=== PATIENT | male | born 1940 | race Caucasian/White ===

== ENCOUNTER 2021-05-22 07:16 | Observation (INO) | payer OTHER, BC ==
[2021-05-22 08:03] VITALS: BMI 32.3
[2021-05-22 09:03] LABS: HEMATOCRIT 32.2 % (35.4-49); MCH 32.2 pg (25.7-33.7); MCHC 34.1 g/dl (32.0-35.9); MEAN CELL VOLUME 94.3 fl (80-96); PLATELET COUNT 296 10^3/uL (134-434); RBC 3.42 M/mm3 (4.00-5.60); RDW 13.8 % (11.9-15.9)
[2021-05-22 09:07] LABS: WHITE BLOOD COUNT 9.7 K/mm3 (4.0-10.0)
[2021-05-22 09:10] LABS: INR 0.92 (0.83-1.09); PROTHROMBIN TIME (PATIENT) 10.6 SEC (9.7-13.0)
[2021-05-22 09:17] LABS: ALBUMIN 3.4 g/dl (3.4-5.0); CALCIUM 9.6 mg/dL (8.5-10.1); MAGNESIUM 2.7 mg/dL (1.8-2.4)
[2021-05-22 09:20] LABS: CREATININE 1.3 mg/dL (0.55-1.3)
[2021-05-22 09:22] LABS: BILIRUBIN,TOTAL 0.6 mg/dL (0.2-1); TOT PROT 7.6 g/dl (6.4-8.2)
[2021-05-22 09:25] LABS: ACTIVATED PTT 16.6 SECONDS (25.2-36.5)
[2021-05-22 10:19] LABS: ANISOCYTOSIS 0; MACROCYTOSIS 0
[2021-05-22 11:29] LABS: CALCIUM 9.8 mg/dL (8.5-10.1)
[2021-05-22 11:30] LABS: MAGNESIUM 2.6 mg/dL (1.8-2.4)
[2021-05-22 11:33] LABS: CREATININE 1.3 mg/dL (0.55-1.3)
[2021-05-22] MEDS ORDERED: ACETAMINOPHEN 325 MG TABLET (FP) PO PRN (11:55)
[2021-05-22] MEDS ORDERED: MELATONIN 5 MG TABLETS PO PRN (12:04)
[2021-05-22] MEDS ORDERED: FUROSEMIDE 40 MG/4 ML INJECTABLE VIAL IVPUSH ONE (12:14)
[2021-05-22] MEDS ORDERED: PANTOPRAZOLE 40 MG TABLET ONE (12:27)
[2021-05-22] MEDS: PANTOPRAZOLE 40 MG TABLET PO SCH (13:05)
[2021-05-22] MEDS: DIVALPROEX SODIUM 125 MG TABLET E.C. PO SCH ×2 (13:05→22:49)
[2021-05-22] MEDS ORDERED: INSULIN SLIDING SCALE (NOVOLOG) 1 VIAL SQ SCH (16:30)
[2021-05-22] MEDS ORDERED: OLANZapine 5 MG TABLET PO SCH (22:00)
[2021-05-22] MEDS ORDERED: traZODone HCL 50 MG TABLET (FP) PO SCH (22:00)
[2021-05-22] MEDS: OLANZapine 5 MG TABLET PO SCH (22:46)
[2021-05-22] MEDS: ATORVASTATIN CA 20 MG TABLET (FP) PO SCH (22:48)
[2021-05-23] MEDS: LEVOTHYROXINE NA 88 MCG TABLET (FP) PO SCH (06:34)
[2021-05-23 07:40] LABS: BASO % 1.1 % (0-2.0); HEMATOCRIT 28.6 % (35.4-49); HEMOGLOBIN 9.4 GM/dL (11.7-16.9); LYMPH % 21.6 % (8-40); MCH 31.4 pg (25.7-33.7); MCHC 32.8 g/dl (32.0-35.9); MEAN CELL VOLUME 95.8 fl (80-96); MEAN PLT VOLUME 7.2 fl (7.5-11.1); MONO % 10.5 % (3.8-10.2); NEUT % 60.8 % (42.8-82.8); PLATELET COUNT 245 10^3/uL (134-434); RBC 2.99 M/mm3 (4.00-5.60); RDW 13.8 % (11.9-15.9); WHITE BLOOD COUNT 5.7 K/mm3 (4.0-10.0)
[2021-05-23 07:46] LABS: BLOOD UREA NITROGEN 31.2 mg/dL (7-18); CALCIUM 8.4 mg/dL (8.5-10.1); MAGNESIUM 2.6 mg/dL (1.8-2.4)
[2021-05-23] MEDS ORDERED: FUROSEMIDE 40 MG/4 ML INJECTABLE VIAL IVPUSH ONE (07:47)
[2021-05-23 07:50] LABS: CREATININE 1.4 mg/dL (0.55-1.3)
[2021-05-23] MEDS: DIVALPROEX SODIUM 125 MG TABLET E.C. PO SCH ×2 (09:46→21:45)
[2021-05-23] MEDS: PANTOPRAZOLE 40 MG TABLET PO SCH (09:46)
[2021-05-23] MEDS: MEMANTINE HCL 10 MG TABLET (FP) PO SCH (09:46)
[2021-05-23] MEDS ORDERED: ASPIRIN COATED 81 MG TABLET.EC PO SCH (10:00)
[2021-05-23] MEDS ORDERED: ESCITALOPRAM OXALATE 10 MG TABLET PO SCH ×2 (10:00)
[2021-05-23] MEDS: ATORVASTATIN CA 20 MG TABLET (FP) PO SCH (21:45)
[2021-05-23] MEDS: OLANZapine 5 MG TABLET PO SCH (21:45)
[2021-05-24] MEDS: LEVOTHYROXINE NA 88 MCG TABLET (FP) PO SCH (06:27)
[2021-05-24 07:40] LABS: EOS % 5.9 % (0-4.5); HEMATOCRIT 30.4 % (35.4-49); HEMOGLOBIN 10.3 GM/dL (11.7-16.9); LYMPH % 23.7 % (8-40); MCH 32.2 pg (25.7-33.7); MCHC 33.8 g/dl (32.0-35.9); MEAN CELL VOLUME 95.1 fl (80-96); MONO % 10.2 % (3.8-10.2); NEUT % 59.2 % (42.8-82.8); PLATELET COUNT 243 10^3/uL (134-434); RBC 3.19 M/mm3 (4.00-5.60); RDW 13.6 % (11.9-15.9); WHITE BLOOD COUNT 6.4 K/mm3 (4.0-10.0)
[2021-05-24] MEDS ORDERED: FUROSEMIDE 40 MG/4 ML INJECTABLE VIAL IVPUSH ONE (07:59)
[2021-05-24 08:02] LABS: CALCIUM 8.4 mg/dL (8.5-10.1)
[2021-05-24 08:03] LABS: BLOOD UREA NITROGEN 34.2 mg/dL (7-18)
[2021-05-24 08:05] LABS: CREATININE 1.4 mg/dL (0.55-1.3)
[2021-05-24] MEDS: DIVALPROEX SODIUM 125 MG TABLET E.C. PO SCH (09:04)
[2021-05-24] MEDS: OLANZapine 5 MG TABLET PO SCH (09:05)
[2021-05-24] MEDS ORDERED: ASPIRIN COATED 81 MG TABLET.EC PO SCH (10:15)
[2021-05-24] MEDS: MEMANTINE HCL 10 MG TABLET (FP) PO SCH (11:31)
[2021-05-24] MEDS: PANTOPRAZOLE 40 MG TABLET PO SCH (11:40)
[2021-05-24 15:08] VITALS: BP 137/66; PULSE 79; TEMP 97.8
== END 2021-05-24 16:11 | disposition short-term general hospital (02) ==
LOC: JER 07:16 → JERBED 10:41 → J4W 21:49
PROVIDERS: ADMIT Internal Medicine; ATTEND Internal Medicine
PROC: 3E0337Z Introduction of Electrolytic and Water Balance Substance into Peripheral Vein, Percutaneous Approach (ICD-10-PCS; principal; 2021-05-22)
PROC: 3E033GC Introduction of Other Therapeutic Substance into Peripheral Vein, Percutaneous Approach (ICD-10-PCS; 2021-05-22)
DX: I11.0 Hypertensive heart disease with heart failure (principal); E78.5 Hyperlipidemia, unspecified; Z95.1 Presence of aortocoronary bypass graft; E03.9 Hypothyroidism, unspecified; F32.9 Major depressive disorder, single episode, unspecified; F03.90 Unspecified dementia, unspecified severity, without behavioral disturbance, psychotic disturbance, mood disturbance, and anxiety; F22 Delusional disorders; G40.909 Epilepsy, unspecified, not intractable, without status epilepticus; Z95.0 Presence of cardiac pacemaker; M19.90 Unspecified osteoarthritis, unspecified site; M62.81 Muscle weakness (generalized); R79.89 Other specified abnormal findings of blood chemistry; R26.81 Unsteadiness on feet
CPT/HCPCS: 36415; 70450-TC; 71045-TC-FY; 72125-TC; 80048; 80053; 82550; 82607; 82728; 82962; 83036; 83540; 83550; 83735; 84443; 84484; 85025; 85610; 85730; 93005; 93010; 93306-TC; 96374; 96376; 97116-GP; 97161-GP; 99285-25; C9803; G0378; U0003; U0005

== ENCOUNTER 2021-05-31 01:35 | Emergency (ER) | payer OTHER, BC ==
[2021-05-31 02:13] VITALS: BMI 32.5
[2021-05-31] MEDS ORDERED: ACETAMINOPHEN 325 MG TABLET (FP) PO ONE (02:20)
[2021-05-31] MEDS ORDERED: ACETAMINOPHEN 325 MG TABLET (FP) ONE (02:27)
[2021-05-31 07:46] VITALS: BP 147/83; PULSE 62; TEMP 97.7
== END 2021-05-31 07:45 ==
LOC: JER 01:35
DX: S00.81XA Abrasion of other part of head, initial encounter (principal); W19.XXXA Unspecified fall, initial encounter
CPT/HCPCS: 70450-TC; 70486-TC; 72125-TC; 99284-25

== ENCOUNTER 2022-01-23 06:41 | Inpatient (IN) | payer OTHER, BC ==
[2022-01-23] MEDS ORDERED: ALBUTEROL SO4 2.5/IPRATROPIUM 0.5 INH SOL 3 ML VIAL.NEB. NEB ONE ×2 (07:19→07:27)
[2022-01-23 07:53] LABS: BASO % 0.4 % (0-2.0); EOS % 0.6 % (0-4.5); HEMATOCRIT 31.9 % (35.4-49); HEMOGLOBIN 10.6 GM/dL (11.7-16.9); LYMPH % 11.2 % (8-40); MCH 30.7 pg (25.7-33.7); MCHC 33.2 g/dl (32.0-35.9); MEAN CELL VOLUME 92.3 fl (80-96); MEAN PLT VOLUME 7.8 fl (7.5-11.1); MONO % 11.3 % (3.8-10.2); NEUT % 76.5 % (42.8-82.8); PLATELET COUNT 179 10^3/uL (134-434); RBC 3.46 M/mm3 (4.00-5.60); RDW 14.7 % (11.9-15.9); WHITE BLOOD COUNT 10.5 K/mm3 (4.0-10.0)
[2022-01-23] MEDS ORDERED: ACETAMINOPHEN 1000 MG/100 ML BAG IVPB ONE (08:02)
[2022-01-23 08:04] LABS: INR 1.17 (0.83-1.09); PROTHROMBIN TIME (PATIENT) 13.5 SEC (9.7-13.0)
[2022-01-23 08:06] LABS: ACTIVATED PTT 27.7 SECONDS (25.2-36.5)
[2022-01-23 08:10] LABS: VENOUS BASE EXCESS 3.1 mmol/L (-2-2); VENOUS O2 SATURATION 92.3 % (70-80); VENOUS PCO2 42.6 mmHg (38-52); VENOUS PH 7.432 (7.310-7.410)
[2022-01-23 08:12] LABS: ALBUMIN 2.7 g/dl (3.4-5.0); BLOOD UREA NITROGEN 57.5 mg/dL (7-18)
[2022-01-23 08:15] LABS: CREATININE 2.6 mg/dL (0.55-1.3)
[2022-01-23 08:17] LABS: BILIRUBIN,TOTAL 0.7 mg/dL (0.2-1); TOT PROT 6.5 g/dl (6.4-8.2)
[2022-01-23 08:20] LABS: N-TERMINAL BNP 1414.1 pg/ml (5-450)
[2022-01-23] MEDS ORDERED: FUROSEMIDE 40 MG/4 ML INJECTABLE VIAL IVPUSH ONE (08:57)
[2022-01-23] MEDS ORDERED: PIPERACILLIN/TAZOB 4.5 GM 4.5 GM in DEXTROSE 5%-WATER 100 ML IVPB ONE (08:58)
[2022-01-23] MEDS ORDERED: PIPERACILLIN/TAZOB 4.5 GM 4.5 GM/100 ML BAG IVPB ONE (10:17)
[2022-01-23] MEDS ORDERED: FUROSEMIDE 40 MG/4 ML INJECTABLE VIAL ONE ×2 (10:18→13:19)
[2022-01-23] MEDS ORDERED: ATORVASTATIN CA 80 MG TABLET (FP) PO ONE (10:30)
[2022-01-23] MEDS: INSULIN SLIDING SCALE (NOVOLOG) 1 VIAL SQ SCH ×2 (10:53→17:54)
[2022-01-23] MEDS ORDERED: ATORVASTATIN CA 80 MG TABLET (FP) ONE (10:54)
[2022-01-23] MEDS ORDERED: ASPIRIN 81 MG CHEWABLE TABLETS ONE (10:54)
[2022-01-23] MEDS: ASPIRIN 81 MG CHEWABLE TABLETS PO SCH ×2 (10:55→10:59)
[2022-01-23] MEDS ORDERED: VANCOMYCIN/WATER FOR INJ (PEG) 1,000 MG/200 ML BAG IVPB ONE (10:55)
[2022-01-23] MEDS ORDERED: VANCOMYCIN 1 GM/200 ML PREMIX BAG IVPB ONE (11:00)
[2022-01-23] MEDS ORDERED: ENOXAPARIN NA (PORCINE) 120 MG/0.8 ML DISP.SYRIN SQ SCH (11:30)
[2022-01-23] MEDS ORDERED: ENOXAPARIN NA (PORCINE) 30 MG/0.3 ML DISP.SYRIN SQ ONE (11:41)
[2022-01-23] MEDS ORDERED: ENOXAPARIN NA (PORCINE) 100 MG/1 ML DISP.SYRIN SQ ONE (11:41)
[2022-01-23] MEDS ORDERED: ENOXAPARIN 100 MG, ENOXAPARIN 30 MG SQ ONE (11:45)
[2022-01-23 12:42] LABS: EPI CELLS 11 /uL (0-25.1); HYALINE CASTS 6 /uL (0-3.1); URINE APPEARANCE TURBID; URINE BACTERIA >9,000 /uL (0-1359); URINE BILIRUBIN NEGATIVE (NEGATIVE); URINE COLOR YELLOW; URINE GLUCOSE (UA) NEGATIVE (NEGATIVE); URINE KETONE NEGATIVE (NEGATIVE); URINE LEUK ESTERASE 3+ (NEGATIVE); URINE NITRITE NEGATIVE (NEGATIVE); URINE PROTEIN 1+ (NEGATIVE); URINE RBC 49 /uL (0-23.9); URINE UROBILINOGEN 0.2 mg/dL (0.2-1.0); URINE WBC 5880 /uL (0-25.8)
[2022-01-23] MEDS: FUROSEMIDE 40 MG/4 ML INJECTABLE VIAL IVPUSH SCH (13:21)
[2022-01-23] MEDS ORDERED: HEPARIN NA (PORCINE) 5,000 UNITS/ML 1ML VIAL SQ SCH (14:00)
[2022-01-23] MEDS ORDERED: PIPERACILLIN/TAZOB 3.375 GM 3.375 GM in DEXTROSE 5%-WATER - 50 ML IVPB SCH ×2 (15:00→18:00)
[2022-01-23] MEDS ORDERED: ASPIRIN 325 MG TABLET PO ONE (16:32)
[2022-01-23] MEDS: DIVALPROEX SODIUM 125 MG TABLET E.C. PO SCH (22:48)
[2022-01-24] MEDS: FUROSEMIDE 40 MG/4 ML INJECTABLE VIAL IVPUSH SCH ×2 (06:24→14:10)
[2022-01-24] MEDS: INSULIN SLIDING SCALE (NOVOLOG) 1 VIAL SQ SCH ×3 (06:37→17:21)
[2022-01-24] MEDS: LEVOTHYROXINE NA 88 MCG TABLET (FP) PO SCH (06:38)
[2022-01-24 08:08] LABS: BASO % 0.2 % (0-2.0); EOS % 0.5 % (0-4.5); HEMATOCRIT 29.4 % (35.4-49); HEMOGLOBIN 10.1 GM/dL (11.7-16.9); LYMPH % 7.5 % (8-40); MCH 31.7 pg (25.7-33.7); MCHC 34.4 g/dl (32.0-35.9); MEAN CELL VOLUME 92.1 fl (80-96); MEAN PLT VOLUME 8.3 fl (7.5-11.1); MONO % 9.2 % (3.8-10.2); NEUT % 82.6 % (42.8-82.8); PLATELET COUNT 157 10^3/uL (134-434); RBC 3.19 M/mm3 (4.00-5.60); RDW 14.2 % (11.9-15.9); WHITE BLOOD COUNT 8.8 K/mm3 (4.0-10.0)
[2022-01-24 08:31] LABS: BLOOD UREA NITROGEN 53.1 mg/dL (7-18)
[2022-01-24 08:32] LABS: ALBUMIN 2.4 g/dl (3.4-5.0)
[2022-01-24 08:34] LABS: CREATININE 2.3 mg/dL (0.55-1.3); PHOSPHOROUS 3.4 mg/dL (2.5-4.9); TOT PROT 6.2 g/dl (6.4-8.2)
[2022-01-24 08:38] LABS: BILIRUBIN,TOTAL 0.9 mg/dL (0.2-1)
[2022-01-24] MEDS: MEMANTINE HCL 10 MG TABLET (FP) PO SCH (11:19)
[2022-01-24] MEDS: HEPARIN NA (PORCINE) 5,000 UNITS/ML 1ML VIAL SQ SCH ×3 (11:20→21:56)
[2022-01-24] MEDS: ESCITALOPRAM OXALATE 20 MG TABLET PO SCH (11:21)
[2022-01-24] MEDS: ASPIRIN 81 MG CHEWABLE TABLETS PO SCH (11:21)
[2022-01-24] MEDS: OLANZapine 5 MG TABLET PO SCH (11:21)
[2022-01-24] MEDS: CEFTRIAXONE 1 GM in DEXTROSE 5%-WATER - 50 ML IVPB SCH (11:21)
[2022-01-24] MEDS: DIVALPROEX SODIUM 125 MG TABLET E.C. PO SCH ×2 (11:22→21:58)
[2022-01-24] MEDS: OXYBUTYNIN CHLORIDE 5 MG TABLET PO SCH (11:22)
[2022-01-24] MEDS ORDERED: ACETAMINOPHEN 325 MG TABLET (FP) PO PRN (17:44)
[2022-01-24] MEDS ORDERED: ATORVASTATIN CA 20 MG TABLET (FP) PO SCH (22:00)
[2022-01-25] MEDS: INSULIN SLIDING SCALE (NOVOLOG) 1 VIAL SQ SCH ×3 (06:34→18:33)
[2022-01-25] MEDS: FUROSEMIDE 40 MG/4 ML INJECTABLE VIAL IVPUSH SCH ×2 (06:34→14:30)
[2022-01-25] MEDS: HEPARIN NA (PORCINE) 5,000 UNITS/ML 1ML VIAL SQ SCH ×3 (06:34→21:40)
[2022-01-25] MEDS: LEVOTHYROXINE NA 88 MCG TABLET (FP) PO SCH (06:34)
[2022-01-25] MEDS ORDERED: ATORVASTATIN CA 20 MG TABLET (FP) PO SCH (08:00)
[2022-01-25] MEDS: ASPIRIN 81 MG CHEWABLE TABLETS PO SCH (10:33)
[2022-01-25] MEDS: CEFTRIAXONE 1 GM in DEXTROSE 5%-WATER - 50 ML IVPB SCH (10:33)
[2022-01-25] MEDS: METOPROLOL TARTRATE 25 MG TABLET (FP) PO SCH ×2 (10:33→21:40)
[2022-01-25] MEDS: ESCITALOPRAM OXALATE 20 MG TABLET PO SCH (10:33)
[2022-01-25] MEDS: MEMANTINE HCL 10 MG TABLET (FP) PO SCH (10:33)
[2022-01-25] MEDS: OLANZapine 5 MG TABLET PO SCH (10:33)
[2022-01-25] MEDS: OXYBUTYNIN CHLORIDE 5 MG TABLET PO SCH (10:55)
[2022-01-25] MEDS: DIVALPROEX SODIUM 125 MG TABLET E.C. PO SCH ×2 (10:56→21:40)
[2022-01-25 13:16] LABS: BLOOD UREA NITROGEN 41.7 mg/dL (7-18); CALCIUM 8.3 mg/dL (8.5-10.1)
[2022-01-25 13:19] LABS: CREATININE 1.7 mg/dL (0.55-1.3)
[2022-01-25] MEDS: ATORVASTATIN CA 80 MG TABLET (FP) PO SCH (21:40)
[2022-01-26] MEDS: INSULIN SLIDING SCALE (NOVOLOG) 1 VIAL SQ SCH ×3 (06:50→17:42)
[2022-01-26] MEDS: HEPARIN NA (PORCINE) 5,000 UNITS/ML 1ML VIAL SQ SCH ×3 (06:50→21:39)
[2022-01-26] MEDS: LEVOTHYROXINE NA 88 MCG TABLET (FP) PO SCH (06:50)
[2022-01-26] MEDS: FUROSEMIDE 40 MG/4 ML INJECTABLE VIAL IVPUSH SCH ×2 (06:50→14:39)
[2022-01-26 07:52] LABS: BASO % 0.4 % (0-2.0); EOS % 1.2 % (0-4.5); HEMATOCRIT 30.3 % (35.4-49); HEMOGLOBIN 9.9 GM/dL (11.7-16.9); LYMPH % 10.8 % (8-40); MCH 29.9 pg (25.7-33.7); MCHC 32.5 g/dl (32.0-35.9); MEAN CELL VOLUME 92.1 fl (80-96); MEAN PLT VOLUME 8.4 fl (7.5-11.1); MONO % 10.3 % (3.8-10.2); NEUT % 77.3 % (42.8-82.8); PLATELET COUNT 219 10^3/uL (134-434); RBC 3.29 M/mm3 (4.00-5.60); RDW 14.3 % (11.9-15.9); WHITE BLOOD COUNT 9.3 K/mm3 (4.0-10.0)
[2022-01-26 08:16] LABS: CALCIUM 8.5 mg/dL (8.5-10.1)
[2022-01-26 08:17] LABS: BLOOD UREA NITROGEN 46.3 mg/dL (7-18)
[2022-01-26 08:19] LABS: CREATININE 1.6 mg/dL (0.55-1.3)
[2022-01-26] MEDS: ESCITALOPRAM OXALATE 20 MG TABLET PO SCH (09:50)
[2022-01-26] MEDS: MEMANTINE HCL 10 MG TABLET (FP) PO SCH (09:50)
[2022-01-26] MEDS: METOPROLOL TARTRATE 25 MG TABLET (FP) PO SCH ×2 (09:50→21:39)
[2022-01-26] MEDS: OLANZapine 5 MG TABLET PO SCH (09:50)
[2022-01-26] MEDS: DIVALPROEX SODIUM 125 MG TABLET E.C. PO SCH ×2 (09:51→21:39)
[2022-01-26] MEDS: OXYBUTYNIN CHLORIDE 5 MG TABLET PO SCH (09:51)
[2022-01-26] MEDS: traZODone HCL 50 MG TABLET (FP) PO SCH (09:56)
[2022-01-26] MEDS: ASPIRIN COATED 81 MG TABLET.EC PO SCH (09:56)
[2022-01-26] MEDS: CEFTRIAXONE 1 GM in DEXTROSE 5%-WATER - 50 ML IVPB SCH (15:10)
[2022-01-26] MEDS: ATORVASTATIN CA 80 MG TABLET (FP) PO SCH (21:38)
[2022-01-27] MEDS: FUROSEMIDE 40 MG/4 ML INJECTABLE VIAL IVPUSH SCH ×2 (06:54→13:56)
[2022-01-27] MEDS: HEPARIN NA (PORCINE) 5,000 UNITS/ML 1ML VIAL SQ SCH ×3 (06:54→22:27)
[2022-01-27] MEDS: INSULIN SLIDING SCALE (NOVOLOG) 1 VIAL SQ SCH ×3 (06:54→17:31)
[2022-01-27] MEDS: LEVOTHYROXINE NA 88 MCG TABLET (FP) PO SCH (06:55)
[2022-01-27 08:27] LABS: BASO % 0.7 % (0-2.0); EOS % 2.7 % (0-4.5); HEMATOCRIT 29.8 % (35.4-49); LYMPH % 14.9 % (8-40); MCH 30.9 pg (25.7-33.7); MCHC 33.5 g/dl (32.0-35.9); MEAN CELL VOLUME 92.3 fl (80-96); MEAN PLT VOLUME 8.1 fl (7.5-11.1); MONO % 11.9 % (3.8-10.2); NEUT % 69.8 % (42.8-82.8); PLATELET COUNT 231 10^3/uL (134-434); RBC 3.23 M/mm3 (4.00-5.60); RDW 14.8 % (11.9-15.9); WHITE BLOOD COUNT 8.6 K/mm3 (4.0-10.0)
[2022-01-27 08:53] LABS: CALCIUM 8.6 mg/dL (8.5-10.1)
[2022-01-27 08:54] LABS: ALBUMIN 2.2 g/dl (3.4-5.0); BLOOD UREA NITROGEN 57.4 mg/dL (7-18); MAGNESIUM 2.4 mg/dL (1.8-2.4)
[2022-01-27 08:57] LABS: CREATININE 1.9 mg/dL (0.55-1.3)
[2022-01-27 08:58] LABS: BILIRUBIN,TOTAL 0.6 mg/dL (0.2-1); TOT PROT 6.4 g/dl (6.4-8.2)
[2022-01-27] MEDS: CEFTRIAXONE 1 GM in DEXTROSE 5%-WATER - 50 ML IVPB SCH (09:56)
[2022-01-27] MEDS: OLANZapine 5 MG TABLET PO SCH (09:57)
[2022-01-27] MEDS: MEMANTINE HCL 10 MG TABLET (FP) PO SCH (09:57)
[2022-01-27] MEDS: ESCITALOPRAM OXALATE 20 MG TABLET PO SCH (09:57)
[2022-01-27] MEDS: traZODone HCL 50 MG TABLET (FP) PO SCH (09:57)
[2022-01-27] MEDS: ASPIRIN COATED 81 MG TABLET.EC PO SCH (09:57)
[2022-01-27] MEDS: DIVALPROEX SODIUM 125 MG TABLET E.C. PO SCH ×2 (09:59→22:27)
[2022-01-27] MEDS: OXYBUTYNIN CHLORIDE 5 MG TABLET PO SCH (09:59)
[2022-01-27] MEDS: METOPROLOL TARTRATE 25 MG TABLET (FP) PO SCH ×2 (10:07→22:28)
[2022-01-27] MEDS ORDERED: ONDANSETRON 4 MG/2 ML VIAL IVPUSH PRN (14:54)
[2022-01-27] MEDS ORDERED: PROPOFOL 20 ML ONE (15:38)
[2022-01-27] MEDS ORDERED: ceFAZolin SODIUM 1 GM VIAL IVPB ONE (15:59)
[2022-01-27] MEDS ORDERED: ceFAZolin SODIUM 1 GM VIAL ONE (16:12)
[2022-01-27] MEDS ORDERED: ACETAMINOPHEN 325 MG TABLET (FP) PO PRN (16:44)
[2022-01-27] MEDS: ATORVASTATIN CA 80 MG TABLET (FP) PO SCH (22:27)
[2022-01-28] MEDS: INSULIN SLIDING SCALE (NOVOLOG) 1 VIAL SQ SCH ×3 (06:44→17:40)
[2022-01-28] MEDS: FUROSEMIDE 40 MG/4 ML INJECTABLE VIAL IVPUSH SCH ×2 (06:44→14:01)
[2022-01-28] MEDS: LEVOTHYROXINE NA 88 MCG TABLET (FP) PO SCH (06:44)
[2022-01-28] MEDS: HEPARIN NA (PORCINE) 5,000 UNITS/ML 1ML VIAL SQ SCH ×3 (06:44→22:15)
[2022-01-28 08:38] LABS: BASO % 0.5 % (0-2.0); EOS % 3.9 % (0-4.5); HEMATOCRIT 30.7 % (35.4-49); HEMOGLOBIN 9.9 GM/dL (11.7-16.9); LYMPH % 13.3 % (8-40); MCHC 32.4 g/dl (32.0-35.9); MEAN CELL VOLUME 92.6 fl (80-96); MEAN PLT VOLUME 7.7 fl (7.5-11.1); MONO % 10.1 % (3.8-10.2); NEUT % 72.2 % (42.8-82.8); PLATELET COUNT 292 10^3/uL (134-434); RBC 3.31 M/mm3 (4.00-5.60); WHITE BLOOD COUNT 8.2 K/mm3 (4.0-10.0)
[2022-01-28 08:55] LABS: ALBUMIN 2.2 g/dl (3.4-5.0)
[2022-01-28 08:56] LABS: BLOOD UREA NITROGEN 49.9 mg/dL (7-18); CALCIUM 8.7 mg/dL (8.5-10.1); MAGNESIUM 2.4 mg/dL (1.8-2.4)
[2022-01-28 08:58] LABS: CREATININE 1.6 mg/dL (0.55-1.3)
[2022-01-28 09:00] LABS: BILIRUBIN,TOTAL 0.4 mg/dL (0.2-1); TOT PROT 6.4 g/dl (6.4-8.2)
[2022-01-28] MEDS: CEFTRIAXONE 1 GM in DEXTROSE 5%-WATER - 50 ML IVPB SCH (09:40)
[2022-01-28] MEDS: METOPROLOL TARTRATE 25 MG TABLET (FP) PO SCH ×2 (09:41→22:14)
[2022-01-28] MEDS: ESCITALOPRAM OXALATE 20 MG TABLET PO SCH (09:41)
[2022-01-28] MEDS: ASPIRIN COATED 81 MG TABLET.EC PO SCH (09:41)
[2022-01-28] MEDS: OLANZapine 5 MG TABLET PO SCH (09:41)
[2022-01-28] MEDS: traZODone HCL 50 MG TABLET (FP) PO SCH (09:41)
[2022-01-28] MEDS: MEMANTINE HCL 10 MG TABLET (FP) PO SCH (09:41)
[2022-01-28] MEDS: DIVALPROEX SODIUM 125 MG TABLET E.C. PO SCH ×2 (10:21→22:15)
[2022-01-28] MEDS: OXYBUTYNIN CHLORIDE 5 MG TABLET PO SCH (10:21)
[2022-01-28] MEDS: ATORVASTATIN CA 80 MG TABLET (FP) PO SCH (22:15)
[2022-01-29] MEDS: HEPARIN NA (PORCINE) 5,000 UNITS/ML 1ML VIAL SQ SCH ×3 (06:24→22:06)
[2022-01-29] MEDS: FUROSEMIDE 40 MG/4 ML INJECTABLE VIAL IVPUSH SCH (06:25)
[2022-01-29] MEDS: LEVOTHYROXINE NA 88 MCG TABLET (FP) PO SCH (06:25)
[2022-01-29] MEDS: INSULIN SLIDING SCALE (NOVOLOG) 1 VIAL SQ SCH ×3 (06:25→17:54)
[2022-01-29 08:34] LABS: BASO % 1.3 % (0-2.0); EOS % 4.4 % (0-4.5); HEMATOCRIT 31.2 % (35.4-49); HEMOGLOBIN 10.3 GM/dL (11.7-16.9); LYMPH % 23.7 % (8-40); MCH 30.4 pg (25.7-33.7); MEAN CELL VOLUME 92.3 fl (80-96); MEAN PLT VOLUME 7.4 fl (7.5-11.1); MONO % 8.8 % (3.8-10.2); NEUT % 61.8 % (42.8-82.8); PLATELET COUNT 345 10^3/uL (134-434); RBC 3.38 M/mm3 (4.00-5.60); RDW 14.4 % (11.9-15.9); WHITE BLOOD COUNT 7.4 K/mm3 (4.0-10.0)
[2022-01-29 09:03] LABS: ALBUMIN 2.2 g/dl (3.4-5.0); BLOOD UREA NITROGEN 47.1 mg/dL (7-18); CALCIUM 8.9 mg/dL (8.5-10.1); MAGNESIUM 2.6 mg/dL (1.8-2.4)
[2022-01-29 09:04] LABS: BLOOD UREA NITROGEN 49.8 mg/dL (7-18)
[2022-01-29] MEDS: CEFTRIAXONE 1 GM in DEXTROSE 5%-WATER - 50 ML IVPB SCH (09:04)
[2022-01-29] MEDS: ASPIRIN COATED 81 MG TABLET.EC PO SCH (09:04)
[2022-01-29] MEDS: MEMANTINE HCL 10 MG TABLET (FP) PO SCH (09:04)
[2022-01-29] MEDS: traZODone HCL 50 MG TABLET (FP) PO SCH (09:04)
[2022-01-29] MEDS: OLANZapine 5 MG TABLET PO SCH (09:04)
[2022-01-29] MEDS: ESCITALOPRAM OXALATE 20 MG TABLET PO SCH (09:04)
[2022-01-29] MEDS: DIVALPROEX SODIUM 125 MG TABLET E.C. PO SCH ×2 (09:05→22:02)
[2022-01-29] MEDS: METOPROLOL TARTRATE 25 MG TABLET (FP) PO SCH ×2 (09:05→22:03)
[2022-01-29] MEDS: OXYBUTYNIN CHLORIDE 5 MG TABLET PO SCH (09:05)
[2022-01-29 09:06] LABS: CREATININE 1.5 mg/dL (0.55-1.3)
[2022-01-29 09:07] LABS: BILIRUBIN,TOTAL 0.4 mg/dL (0.2-1); CREATININE 1.5 mg/dL (0.55-1.3)
[2022-01-29 09:08] LABS: TOT PROT 6.8 g/dl (6.4-8.2)
[2022-01-29] MEDS ORDERED: MINERAL OIL ENEMA 133 ML ENEMA RC ONE (10:21)
[2022-01-29] MEDS: POLYETHYLENE GLYCOL (HEALTHYLAX) 3350 17 GM PACKET PO SCH ×2 (12:44→22:06)
[2022-01-29] MEDS: DOCUSATE SODIUM 100 MG CAPSULE (FP) PO SCH ×2 (15:45→22:07)
[2022-01-29] MEDS: FUROSEMIDE 40 MG TABLET (FP) PO SCH (15:45)
[2022-01-29] MEDS: ATORVASTATIN CA 80 MG TABLET (FP) PO SCH (22:02)
[2022-01-30] MEDS: HEPARIN NA (PORCINE) 5,000 UNITS/ML 1ML VIAL SQ SCH ×3 (06:07→21:15)
[2022-01-30] MEDS: DOCUSATE SODIUM 100 MG CAPSULE (FP) PO SCH ×3 (06:07→21:15)
[2022-01-30] MEDS: FUROSEMIDE 40 MG TABLET (FP) PO SCH ×2 (06:07→13:37)
[2022-01-30] MEDS: LEVOTHYROXINE NA 88 MCG TABLET (FP) PO SCH (06:08)
[2022-01-30] MEDS: INSULIN SLIDING SCALE (NOVOLOG) 1 VIAL SQ SCH ×3 (06:08→17:33)
[2022-01-30 08:06] LABS: BASO % 0.8 % (0-2.0); EOS % 3.2 % (0-4.5); HEMATOCRIT 30.8 % (35.4-49); HEMOGLOBIN 9.9 GM/dL (11.7-16.9); MCH 29.9 pg (25.7-33.7); MCHC 32.2 g/dl (32.0-35.9); MEAN CELL VOLUME 92.9 fl (80-96); MEAN PLT VOLUME 7.5 fl (7.5-11.1); MONO % 7.3 % (3.8-10.2); NEUT % 68.7 % (42.8-82.8); PLATELET COUNT 365 10^3/uL (134-434); RBC 3.32 M/mm3 (4.00-5.60); RDW 14.9 % (11.9-15.9); WHITE BLOOD COUNT 8.6 K/mm3 (4.0-10.0)
[2022-01-30 08:36] LABS: CALCIUM 8.9 mg/dL (8.5-10.1)
[2022-01-30 08:37] LABS: BLOOD UREA NITROGEN 50.4 mg/dL (7-18); MAGNESIUM 2.2 mg/dL (1.8-2.4)
[2022-01-30 08:40] LABS: CREATININE 1.5 mg/dL (0.55-1.3)
[2022-01-30] MEDS: MEMANTINE HCL 10 MG TABLET (FP) PO SCH (09:49)
[2022-01-30] MEDS: ESCITALOPRAM OXALATE 20 MG TABLET PO SCH (09:49)
[2022-01-30] MEDS: CEFTRIAXONE 1 GM in DEXTROSE 5%-WATER - 50 ML IVPB SCH (09:50)
[2022-01-30] MEDS: traZODone HCL 50 MG TABLET (FP) PO SCH (09:50)
[2022-01-30] MEDS: METOPROLOL TARTRATE 25 MG TABLET (FP) PO SCH ×2 (09:50→21:15)
[2022-01-30] MEDS: POLYETHYLENE GLYCOL (HEALTHYLAX) 3350 17 GM PACKET PO SCH ×2 (09:50→21:14)
[2022-01-30] MEDS: ASPIRIN COATED 81 MG TABLET.EC PO SCH (09:50)
[2022-01-30] MEDS: OLANZapine 5 MG TABLET PO SCH (09:50)
[2022-01-30] MEDS: OXYBUTYNIN CHLORIDE 5 MG TABLET PO SCH (09:51)
[2022-01-30] MEDS: DIVALPROEX SODIUM 125 MG TABLET E.C. PO SCH ×2 (09:51→21:24)
[2022-01-30] MEDS: ATORVASTATIN CA 80 MG TABLET (FP) PO SCH (21:23)
[2022-01-31] MEDS: HEPARIN NA (PORCINE) 5,000 UNITS/ML 1ML VIAL SQ SCH ×3 (06:16→22:02)
[2022-01-31] MEDS: DOCUSATE SODIUM 100 MG CAPSULE (FP) PO SCH ×3 (06:16→21:51)
[2022-01-31] MEDS: LEVOTHYROXINE NA 88 MCG TABLET (FP) PO SCH (06:16)
[2022-01-31] MEDS: FUROSEMIDE 40 MG TABLET (FP) PO SCH ×2 (06:16→14:36)
[2022-01-31] MEDS: INSULIN SLIDING SCALE (NOVOLOG) 1 VIAL SQ SCH ×3 (06:17→18:18)
[2022-01-31 08:28] LABS: BASO % 0.5 % (0-2.0); EOS % 3.6 % (0-4.5); HEMATOCRIT 28.5 % (35.4-49); HEMOGLOBIN 9.6 GM/dL (11.7-16.9); LYMPH % 23.6 % (8-40); MCH 31.3 pg (25.7-33.7); MCHC 33.8 g/dl (32.0-35.9); MEAN CELL VOLUME 92.6 fl (80-96); MEAN PLT VOLUME 7.3 fl (7.5-11.1); MONO % 5.9 % (3.8-10.2); NEUT % 66.4 % (42.8-82.8); PLATELET COUNT 352 10^3/uL (134-434); RBC 3.08 M/mm3 (4.00-5.60); RDW 14.3 % (11.9-15.9); WHITE BLOOD COUNT 8.9 K/mm3 (4.0-10.0)
[2022-01-31 08:38] LABS: CALCIUM 8.9 mg/dL (8.5-10.1)
[2022-01-31 08:40] LABS: BLOOD UREA NITROGEN 44.6 mg/dL (7-18)
[2022-01-31 08:44] LABS: CREATININE 1.5 mg/dL (0.55-1.3)
[2022-01-31] MEDS: MEMANTINE HCL 10 MG TABLET (FP) PO SCH (09:55)
[2022-01-31] MEDS: OLANZapine 5 MG TABLET PO SCH (09:55)
[2022-01-31] MEDS: ESCITALOPRAM OXALATE 20 MG TABLET PO SCH (09:55)
[2022-01-31] MEDS: traZODone HCL 50 MG TABLET (FP) PO SCH (09:55)
[2022-01-31] MEDS: ASPIRIN COATED 81 MG TABLET.EC PO SCH (09:55)
[2022-01-31] MEDS: POLYETHYLENE GLYCOL (HEALTHYLAX) 3350 17 GM PACKET PO SCH ×2 (09:55→21:55)
[2022-01-31] MEDS: OXYBUTYNIN CHLORIDE 5 MG TABLET PO SCH (09:57)
[2022-01-31] MEDS: DIVALPROEX SODIUM 125 MG TABLET E.C. PO SCH ×2 (09:57→21:52)
[2022-01-31] MEDS: METOPROLOL TARTRATE 25 MG TABLET (FP) PO SCH ×2 (11:30→22:07)
[2022-01-31] MEDS: ATORVASTATIN CA 80 MG TABLET (FP) PO SCH (22:42)
[2022-02-01] MEDS: HEPARIN NA (PORCINE) 5,000 UNITS/ML 1ML VIAL SQ SCH ×3 (06:36→21:54)
[2022-02-01] MEDS: FUROSEMIDE 40 MG TABLET (FP) PO SCH ×2 (06:36→14:49)
[2022-02-01] MEDS: DOCUSATE SODIUM 100 MG CAPSULE (FP) PO SCH ×3 (06:36→21:55)
[2022-02-01] MEDS: LEVOTHYROXINE NA 88 MCG TABLET (FP) PO SCH (06:36)
[2022-02-01] MEDS: INSULIN SLIDING SCALE (NOVOLOG) 1 VIAL SQ SCH ×3 (07:55→17:49)
[2022-02-01 08:00] LABS: HEMATOCRIT 30.6 % (35.4-49); HEMOGLOBIN 9.9 GM/dL (11.7-16.9); MCH 29.9 pg (25.7-33.7); MCHC 32.2 g/dl (32.0-35.9); MEAN CELL VOLUME 92.9 fl (80-96); MEAN PLT VOLUME 7.5 fl (7.5-11.1); PLATELET COUNT 374 10^3/uL (134-434); RDW 14.3 % (11.9-15.9); WHITE BLOOD COUNT 8.7 K/mm3 (4.0-10.0)
[2022-02-01 08:23] LABS: BLOOD UREA NITROGEN 38.4 mg/dL (7-18); CALCIUM 8.5 mg/dL (8.5-10.1)
[2022-02-01 08:27] LABS: CREATININE 1.3 mg/dL (0.55-1.3)
[2022-02-01 09:19] LABS: ANISOCYTOSIS 2+; MACROCYTOSIS 0
[2022-02-01] MEDS: METOPROLOL TARTRATE 25 MG TABLET (FP) PO SCH ×2 (10:25→21:52)
[2022-02-01] MEDS: ESCITALOPRAM OXALATE 20 MG TABLET PO SCH (10:27)
[2022-02-01] MEDS: ASPIRIN COATED 81 MG TABLET.EC PO SCH (10:27)
[2022-02-01] MEDS: MEMANTINE HCL 10 MG TABLET (FP) PO SCH (10:27)
[2022-02-01] MEDS: OLANZapine 5 MG TABLET PO SCH (10:27)
[2022-02-01] MEDS: traZODone HCL 50 MG TABLET (FP) PO SCH (10:28)
[2022-02-01] MEDS: OXYBUTYNIN CHLORIDE 5 MG TABLET PO SCH (10:28)
[2022-02-01] MEDS: POLYETHYLENE GLYCOL (HEALTHYLAX) 3350 17 GM PACKET PO SCH (10:29)
[2022-02-01] MEDS: DIVALPROEX SODIUM 125 MG TABLET E.C. PO SCH ×2 (10:29→22:00)
[2022-02-01] MEDS: ATORVASTATIN CA 80 MG TABLET (FP) PO SCH (21:52)
[2022-02-02] MEDS: HEPARIN NA (PORCINE) 5,000 UNITS/ML 1ML VIAL SQ SCH ×3 (06:36→21:53)
[2022-02-02] MEDS: LEVOTHYROXINE NA 88 MCG TABLET (FP) PO SCH (06:38)
[2022-02-02] MEDS: DOCUSATE SODIUM 100 MG CAPSULE (FP) PO SCH ×3 (06:38→21:53)
[2022-02-02] MEDS: FUROSEMIDE 40 MG TABLET (FP) PO SCH ×2 (06:38→14:30)
[2022-02-02] MEDS: POLYETHYLENE GLYCOL (HEALTHYLAX) 3350 17 GM PACKET PO SCH ×3 (06:39→21:52)
[2022-02-02 08:04] LABS: HEMATOCRIT 30.5 % (35.4-49); MCH 30.3 pg (25.7-33.7); MCHC 32.9 g/dl (32.0-35.9); MEAN PLT VOLUME 7.3 fl (7.5-11.1); PLATELET COUNT 388 10^3/uL (134-434); RBC 3.32 M/mm3 (4.00-5.60); RDW 14.5 % (11.9-15.9); WHITE BLOOD COUNT 9.8 K/mm3 (4.0-10.0)
[2022-02-02] MEDS: INSULIN SLIDING SCALE (NOVOLOG) 1 VIAL SQ SCH ×3 (08:04→17:10)
[2022-02-02 08:45] LABS: CALCIUM 8.5 mg/dL (8.5-10.1)
[2022-02-02 08:46] LABS: BLOOD UREA NITROGEN 31.6 mg/dL (7-18)
[2022-02-02 08:49] LABS: CREATININE 1.2 mg/dL (0.55-1.3)
[2022-02-02 09:06] LABS: ANISOCYTOSIS 2+; MACROCYTOSIS 0
[2022-02-02] MEDS: OXYBUTYNIN CHLORIDE 5 MG TABLET PO SCH (09:22)
[2022-02-02] MEDS: traZODone HCL 50 MG TABLET (FP) PO SCH (09:23)
[2022-02-02] MEDS: DIVALPROEX SODIUM 125 MG TABLET E.C. PO SCH ×2 (09:23→21:52)
[2022-02-02] MEDS: METOPROLOL TARTRATE 25 MG TABLET (FP) PO SCH ×2 (09:24→21:53)
[2022-02-02] MEDS: ESCITALOPRAM OXALATE 20 MG TABLET PO SCH (09:24)
[2022-02-02] MEDS: OLANZapine 5 MG TABLET PO SCH (09:25)
[2022-02-02] MEDS: MEMANTINE HCL 10 MG TABLET (FP) PO SCH (09:25)
[2022-02-02] MEDS: ASPIRIN COATED 81 MG TABLET.EC PO SCH (09:25)
[2022-02-02 18:01] VITALS: RESP 20
[2022-02-02] MEDS: ATORVASTATIN CA 80 MG TABLET (FP) PO SCH (21:53)
[2022-02-03] MEDS: HEPARIN NA (PORCINE) 5,000 UNITS/ML 1ML VIAL SQ SCH ×2 (05:56→13:11)
[2022-02-03] MEDS: FUROSEMIDE 40 MG TABLET (FP) PO SCH ×2 (05:56→13:11)
[2022-02-03] MEDS: DOCUSATE SODIUM 100 MG CAPSULE (FP) PO SCH ×2 (05:56→13:11)
[2022-02-03] MEDS: INSULIN SLIDING SCALE (NOVOLOG) 1 VIAL SQ SCH ×2 (05:59→11:49)
[2022-02-03] MEDS: LEVOTHYROXINE NA 88 MCG TABLET (FP) PO SCH (05:59)
[2022-02-03] MEDS ORDERED: INSULIN (LEVEMIR) 100 UNITS/ML UNITS SQ ONE (08:54)
[2022-02-03 09:28] LABS: HEMATOCRIT 31.3 % (35.4-49); HEMOGLOBIN 10.3 GM/dL (11.7-16.9); MCH 30.5 pg (25.7-33.7); MCHC 32.8 g/dl (32.0-35.9); MEAN PLT VOLUME 6.9 fl (7.5-11.1); PLATELET COUNT 377 10^3/uL (134-434); RBC 3.37 M/mm3 (4.00-5.60); RDW 14.5 % (11.9-15.9)
[2022-02-03 10:01] LABS: ANISOCYTOSIS 1+; MACROCYTOSIS 0
[2022-02-03 10:03] LABS: BLOOD UREA NITROGEN 35.9 mg/dL (7-18); CALCIUM 9.2 mg/dL (8.5-10.1)
[2022-02-03 10:07] LABS: CREATININE 1.4 mg/dL (0.55-1.3)
[2022-02-03] MEDS: ESCITALOPRAM OXALATE 20 MG TABLET PO SCH (10:58)
[2022-02-03] MEDS: POLYETHYLENE GLYCOL (HEALTHYLAX) 3350 17 GM PACKET PO SCH (10:58)
[2022-02-03] MEDS: OLANZapine 5 MG TABLET PO SCH (10:59)
[2022-02-03] MEDS: ASPIRIN COATED 81 MG TABLET.EC PO SCH (10:59)
[2022-02-03] MEDS: MEMANTINE HCL 10 MG TABLET (FP) PO SCH (10:59)
[2022-02-03] MEDS: traZODone HCL 50 MG TABLET (FP) PO SCH (10:59)
[2022-02-03] MEDS: DIVALPROEX SODIUM 125 MG TABLET E.C. PO SCH (10:59)
[2022-02-03] MEDS: METOPROLOL TARTRATE 25 MG TABLET (FP) PO SCH (10:59)
[2022-02-03] MEDS: OXYBUTYNIN CHLORIDE 5 MG TABLET PO SCH (10:59)
[2022-02-03 13:22] VITALS: BMI 38.0
[2022-02-03 16:22] VITALS: BP 119/63; PULSE 67; TEMP 98.5
[2022-02-03] MEDS ORDERED: AMINO ACIDS/PROTEIN HYDROLYS 30 ML LIQUID.PKT PO SCH (17:30)
== END 2022-02-03 16:45 | DRG 987 ==
LOC: JER 06:41 → JERBED 07:20 → J4W 14:15 → J7W 02-02 17:53
PROVIDERS: ATTEND Internal Medicine
PROC: 0T768DZ Dilation of Right Ureter with Intraluminal Device, Via Natural or Artificial Opening Endoscopic (ICD-10-PCS; principal; 2022-01-27 14:00)
PROC: 0TC68ZZ Extirpation of Matter from Right Ureter, Via Natural or Artificial Opening Endoscopic (ICD-10-PCS; 2022-01-27 14:00)
PROC: BT1DZZZ Fluoroscopy of Right Kidney, Ureter and Bladder (ICD-10-PCS; 2022-01-27 14:00)
DX: I13.0 Hypertensive heart and chronic kidney disease with heart failure and stage 1 through stage 4 chronic kidney disease, or unspecified chronic kidney disease (principal); G93.41 Metabolic encephalopathy; I50.33 Acute on chronic diastolic (congestive) heart failure; J18.9 Pneumonia, unspecified organism; J96.01 Acute respiratory failure with hypoxia; N17.9 Acute kidney failure, unspecified; N39.0 Urinary tract infection, site not specified; N13.6 Pyonephrosis; I25.10 Atherosclerotic heart disease of native coronary artery without angina pectoris; E03.9 Hypothyroidism, unspecified; Z95.1 Presence of aortocoronary bypass graft; F03.90 Unspecified dementia, unspecified severity, without behavioral disturbance, psychotic disturbance, mood disturbance, and anxiety; G40.909 Epilepsy, unspecified, not intractable, without status epilepticus; F22 Delusional disorders; F32.A Depression, unspecified; E11.22 Type 2 diabetes mellitus with diabetic chronic kidney disease; N18.9 Chronic kidney disease, unspecified; D64.9 Anemia, unspecified; F41.9 Anxiety disorder, unspecified; Z66 Do not resuscitate; Z95.0 Presence of cardiac pacemaker; B96.1 Klebsiella pneumoniae [K. pneumoniae] as the cause of diseases classified elsewhere; R77.8 Other specified abnormalities of plasma proteins
CPT/HCPCS: 0241U-QW; 36415; 70450-TC; 71045-TC-FY; 74176-TC; 76000-TC-FY; 76775-TC; 80048; 80053; 80061; 81003; 82570; 82728; 82803; 82962; 83540; 83550; 83605; 83735; 83880; 84100; 84156; 84300; 84439; 84443; 84484; 85025; 85610; 85730; 86038; 86160; 87040; 87086; 87186; 87340; 87899; 93005; 93010; 93306-TC; 93880-TC; 93971-TC; 94660; 94760; 97116-GP; 97162-GP; 99285-25; C1758; C2617; C9803-CS; J1644; U0003; U0005